=== PATIENT | female | born 1960 | race Caucasian/White ===

== ENCOUNTER 2016-05-19 12:00 | Inpatient (IN) | payer MEDICARE ==
[2016-06-16] MEDS ORDERED: LORazepam INJ* 2 MG/ML 1 ML VIAL IV PRN (17:46)
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
[2016-06-16] MEDS ORDERED: Ibuprofen TAB* 600 MG ONE (18:41)
[2016-06-16] MEDS ORDERED: Topiramate TAB(*) 100 MG PO SCH (21:00)
[2016-06-17] MEDS: Ibuprofen TAB* 600 MG PO PRN (04:21)
[2016-06-17] MEDS ORDERED: Topiramate TAB(*) 100 MG PO SCH (09:00)
[2016-06-17] MEDS ORDERED: Sertraline* 100 MG TAB PO SCH (09:00)
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
--- NOTE | 2016-06-17 10:50 | PN ---
Epilepsy Service Progress Note - Subjective Patient slept ok overnight. No episodes of losing time or foul odors. No specific questions or complaints today. She notes that in the past, she's had seizures when ill with the flu or a UTI, and sometimes when she gets overheated exercising. - Medications Active Medications: Diphenhydramine HCl (Benadryl Po*) 25 mg PO Q6H PRN PRN Reason: ITCHING Ibuprofen (Motrin Tab*) 600 mg PO Q8H PRN PRN Reason: PAIN Last Admin: 06/17/16 04:21 Dose: 600 mg Lorazepam (Ativan Inj*) 1 mg IV Q8H PRN PRN Reason: Generalized Tonic Clonic Seizu Sertraline HCl (Zoloft*) 100 mg PO DAILY [facility] Last Admin: 06/17/16 09:16 Dose: Not Given Topiramate (Topamax(*)) 75 mg PO BEDTIME [facility] Topiramate (Topamax(*)) 50 mg PO QAM [facility] EMU Diagnostics - Diagnostic Most Recent Vital Signs: Vital Signs: Temp Pulse Resp BP Pulse Ox 99 F 63 16 136/81 100 06/17/16 08:00 06/17/16 07:53 06/17/16 09:19 06/17/16 07:53 06/17/16 07:53 Interim video-EEG long-term monitoring report: #01 06/16: Normal waking background PDR 9. No epileptiform discharges. During sleep, there is subtle loss of faster frequency activity and lower amplitudes over the right hemisphere, in particular the right temporal region. No seizures. An event at 1452 of feeling weird was not associated with any change in the EEG. EMU Exam - Exam Physical/Neurological Exam: Physical Exam: General: Well appearing in no acute distress. 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 Oriented to person, place, and time. Fluent. Comprehension intact. Affect appropriate. Cranial Nerves: Visual dalton full to confrontation. Versions were full and without nystagmus. Facial musculature and sensation were symmetric. Hearing grossly intact to finger rub. Palate was upgoing bilaterally. Tongue was midline. Shoulder shrug was symmetric. Motor: Moves all extremities grossly equally. No adventitious movements. Sensory: Sensation to light touch intact. Romberg was deferred. Coordination: Finger to nose intact. Gait: Not observed. 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 The primary event for characterization involves waking up from sleep to a very foul odor. However, she also has episodes of staring/loss of time and she is unsure if these are seizures or not. No typical events recorded yet. Plan: * Continue prison video EEG monitoring to capture typical episodes * Seizure precautions * Lorazepam 1mg IV for GTC * reduce Topamax from home dose of 100mg QAM and 150mg QPM to 50mg QAM and 75mg QPM * continue other home meds * will consider increasing temperature in room if no events once patient is off Topamax
[2016-06-17] MEDS ORDERED: Topiramate TAB(*) 25 MG PO SCH (21:00)
[2016-06-17] MEDS: Sertraline* 100 MG TAB PO SCH (21:13)
[2016-06-18] MEDS: Ibuprofen TAB* 600 MG PO PRN ×2 (01:14→14:33)
[2016-06-18] MEDS ORDERED: Topiramate TAB(*) 25 MG PO SCH ×2 (09:00→21:00)
--- NOTE | 2016-06-18 11:31 | PN ---
Epilepsy Service Progress Note - Subjective Pt was visited by her sister yesterday. Received griffin for Ofelia from daughter and sister. No typical events. Generally in good spirits. - Medications Active Medications: Diphenhydramine HCl (Benadryl Po*) 25 mg PO Q6H PRN PRN Reason: ITCHING Ibuprofen (Motrin Tab*) 600 mg PO Q8H PRN PRN Reason: PAIN Last Admin: 06/18/16 01:14 Dose: 600 mg Lorazepam (Ativan Inj*) 1 mg IV Q8H PRN PRN Reason: Generalized Tonic Clonic Seizu Sertraline HCl (Zoloft*) 100 mg PO DAILY@2100 [facility] Last Admin: 06/17/16 21:13 Dose: 100 mg Topiramate (Topamax(*)) 75 mg PO BEDTIME [facility] Last Admin: 06/17/16 21:14 Dose: 75 mg Topiramate (Topamax(*)) 50 mg PO QAM [facility] Last Admin: 06/18/16 08:46 Dose: 50 mg EMU Diagnostics - Diagnostic Most Recent Vital Signs: Vital Signs: Temp Pulse Resp BP Pulse Ox 99.0 F 74 16 136/78 99 06/18/16 08:00 06/18/16 08:00 06/18/16 09:45 06/18/16 08:00 06/18/16 08:00 Interim video-EEG long-term monitoring report: #01 06/16: Normal waking background PDR 9. No epileptiform discharges. During sleep, there is subtle loss of faster frequency activity and lower amplitudes over the right hemisphere, in particular the right temporal region. No seizures. An event at 1452 of feeling weird was not associated with any change in the EEG. #02 06/17: Background similar as previous except no evident asymmetry during sleep. No discharges. No events. EMU Exam - Exam Physical/Neurological Exam: Physical Exam: General: Well appearing in no acute distress. 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 Oriented to person, place, and time. Fluent. Comprehension intact. Affect appropriate. Cranial Nerves: Visual dalton full to confrontation. Versions were full and without nystagmus. Facial musculature and sensation were symmetric. Hearing grossly intact to finger rub. Palate was upgoing bilaterally. Tongue was midline. Shoulder shrug was symmetric. Motor: Moves all extremities grossly equally. No adventitious movements. Sensory: Sensation to light touch intact. Romberg was deferred. Coordination: Finger to nose intact. Gait: Not observed. 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 The primary event for characterization involves waking up from sleep to a very foul odor. However, she also has episodes of staring/loss of time and she is unsure if these are seizures or not. No typical events recorded yet. Plan: * Continue intermodal dispatcher video EEG monitoring to capture typical episodes * Seizure precautions * Lorazepam 1mg IV for GTC * reduce Topamax further to 50mg tonight, then 25mg tomorrow morning, then stop * continue other home meds * will consider increasing temperature in room if no events once patient is off Topamax
[2016-06-18] MEDS: Sertraline* 100 MG TAB PO SCH (21:25)
[2016-06-19] MEDS ORDERED: Topiramate TAB(*) 25 MG PO SCH (09:00)
--- NOTE | 2016-06-19 11:00 | PN ---
Epilepsy Service Progress Note - Subjective No typical events yet. Pt reports she is feeling a little dizzy at times. Not brought on by position changes. Today notes that sometimes lights will bring on a staring-like episode, such as the sun shining through the trees when she's in the car. Last dose of Topamax received this morning. - Medications Active Medications: Diphenhydramine HCl (Benadryl Po*) 25 mg PO Q6H PRN PRN Reason: ITCHING Ibuprofen (Motrin Tab*) 600 mg PO Q8H PRN PRN Reason: PAIN Last Admin: 06/18/16 14:33 Dose: 600 mg Lorazepam (Ativan Inj*) 1 mg IV Q8H PRN PRN Reason: Generalized Tonic Clonic Seizu Sertraline HCl (Zoloft*) 100 mg PO DAILY@2100 [facility] Last Admin: 06/18/16 21:25 Dose: 100 mg EMU Diagnostics - Diagnostic Most Recent Vital Signs: Vital Signs: Temp Pulse Resp BP Pulse Ox 98.5 F 68 16 120/64 100 06/19/16 08:00 06/19/16 08:00 06/19/16 08:12 06/19/16 08:00 06/19/16 08:00 Interim video-EEG long-term monitoring report: #01 06/16: Normal waking background PDR 9. No epileptiform discharges. During sleep, there is subtle loss of faster frequency activity and lower amplitudes over the right hemisphere, in particular the right temporal region. No seizures. An event at 1452 of feeling weird was not associated with any change in the EEG. #02 /: Background similar as previous except no evident asymmetry during sleep. No discharges. No events. #03 /: Background similar to previous day. No discharges. No events. EMU Exam - Exam Physical/Neurological Exam: Physical Exam: General: Well appearing in no acute distress. 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 Oriented to person, place, and time. Fluent. Comprehension intact. Affect appropriate. Cranial Nerves: Visual dalton full to confrontation. Versions were full and without nystagmus. Facial musculature and sensation were symmetric. Hearing grossly intact to finger rub. Palate was upgoing bilaterally. Tongue was midline. Shoulder shrug was symmetric. Motor: Moves all extremities grossly equally. No adventitious movements. Sensory: Sensation to light touch intact. Romberg was deferred. Coordination: Finger to nose intact. Gait: Not observed. 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 The primary event for characterization involves waking up from sleep to a very foul odor. However, she also has episodes of staring/loss of time and she is unsure if these are seizures or not. No typical events recorded yet. Plan: * Continue snf video EEG monitoring to capture typical episodes * Seizure precautions * Lorazepam 1mg IV for GTC * Topamax discontinued after AM dose on 06/19 * continue other home meds * will increase temperature in room to about 85 degrees after lunch * if no events overnight, will consider photic simulation tomorrow
[2016-06-19] MEDS: Ibuprofen TAB* 600 MG PO PRN (12:46)
[2016-06-19] MEDS: Sertraline* 100 MG TAB PO SCH (21:52)
--- NOTE | 2016-06-20 11:32 | PN ---
Epilepsy Service Progress Note - Subjective Jane Olguin does not really remember her episode last evening around 7:45pm of smelling burning toast. She is not sure how long before the button pressed she experienced this. She thinks it was not entirely typical since it occurred while she was awake and was the smell of burnt food, rather than an electrical smell. Her room has been hot since yesterday afternoon. She's having a hard time staying awake. She wondered why Dr. Rojas had previously seen abnormalities on her EEG if I am not seeing anything here. This was a sleep deprived EEG. - Medications Active Medications: Diphenhydramine HCl (Benadryl Po*) 25 mg PO Q6H PRN PRN Reason: ITCHING Ibuprofen (Motrin Tab*) 600 mg PO Q8H PRN PRN Reason: PAIN Last Admin: 06/19/16 12:46 Dose: 600 mg Lorazepam (Ativan Inj*) 1 mg IV Q8H PRN PRN Reason: Generalized Tonic Clonic Seizu Sertraline HCl (Zoloft*) 100 mg PO DAILY@2100 [facility] Last Admin: 06/19/16 21:52 Dose: 100 mg EMU Diagnostics - Diagnostic Most Recent Vital Signs: Vital Signs: Temp Pulse Resp BP Pulse Ox 99.1 F 78 16 120/84 99 06/20/16 08:00 06/20/16 08:00 06/20/16 08:15 06/20/16 08:00 06/20/16 08:00 Interim video-EEG long-term monitoring report: #01 06/16: Normal waking background PDR 9. No epileptiform discharges. During sleep, there is subtle loss of faster frequency activity and lower amplitudes over the right hemisphere, in particular the right temporal region. No seizures. An event at 1452 of feeling weird was not associated with any change in the EEG. #02 06/17: Background similar as previous except no evident asymmetry during sleep. No discharges. No events. #03 06/18: Background similar to previous day. No discharges. No events. #04 06/19: Background similar to previous day. No discharges, focal slowing. She experienced an event of smelling burning toast around 1944. There was no EEG correlate to this. EMU Exam - Exam Physical/Neurological Exam: Physical Exam: General: Well appearing in no acute distress. 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 Oriented to person, place, and time. Fluent. Comprehension intact. Affect appropriate. Cranial Nerves: Visual dalton full to confrontation. Versions were full and without nystagmus. Facial musculature and sensation were symmetric. Hearing grossly intact to finger rub. Palate was upgoing bilaterally. Tongue was midline. Shoulder shrug was symmetric. Motor: Moves all extremities grossly equally. No adventitious movements. Sensory: Sensation to light touch intact. Romberg was deferred. Coordination: Finger to nose intact. Gait: Not observed. 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 The primary event for characterization involves waking up from sleep to a very foul odor. However, she also has episodes of staring/loss of time and she is unsure if these are seizures or not. No typical events recorded yet. She had one event of smelling burning toast which is atypical for her in that it occurred while she was awake, rather than out of sleep, and it was a smell of burning food rather than an electrical smell. Will continue to try and capture more typical events. 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 Will round on pt this afternoon.
[2016-06-20] MEDS: Sertraline* 100 MG TAB PO SCH (21:37)
--- NOTE | 2016-06-21 10:21 | PN ---
Epilepsy Service Progress Note - Subjective No overnight events. Pt was sleep deprived last night. States she feels ok but also feels ready to go home. Willing to keep going, however. Underwent photic this morning. - Medications Active Medications: Diphenhydramine HCl (Benadryl Po*) 25 mg PO Q6H PRN PRN Reason: ITCHING Ibuprofen (Motrin Tab*) 600 mg PO Q8H PRN PRN Reason: PAIN Last Admin: 06/19/16 12:46 Dose: 600 mg Lorazepam (Ativan Inj*) 1 mg IV Q8H PRN PRN Reason: Generalized Tonic Clonic Seizu Sertraline HCl (Zoloft*) 100 mg PO DAILY@2100 [place] Last Admin: 06/20/16 21:37 Dose: 100 mg EMU Diagnostics - Diagnostic Most Recent Vital Signs: Vital Signs: Temp Pulse Resp BP Pulse Ox 97.8 F 76 16 147/84 98 06/21/16 07:41 06/21/16 07:41 06/21/16 07:49 06/21/16 07:41 06/21/16 07:41 Interim video-EEG long-term monitoring report: #01 06/16: Normal waking background PDR 9. No epileptiform discharges. During sleep, there is subtle loss of faster frequency activity and lower amplitudes over the right hemisphere, in particular the right temporal region. No seizures. An event at 1452 of feeling weird was not associated with any change in the EEG. #02 06/17: Background similar as previous except no evident asymmetry during sleep. No discharges. No events. #03 06/18: Background similar to previous day. No discharges. No events. #04 06/19: Background similar to previous day. No discharges, focal slowing. She experienced an event of smelling burning toast around 194. There was no EEG correlate to this. #05 06/20: Background similar to previous day. No discharges, focal slowing. #06: 06/21: Photic induction negative. EMU Exam - Exam Physical/Neurological Exam: Physical Exam: General: Well appearing in no acute distress. 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 Oriented to person, place, and time. Fluent. Comprehension intact. Affect appropriate. Cranial Nerves: Visual dalton full to confrontation. Versions were full and without nystagmus. Facial musculature and sensation were symmetric. Hearing grossly intact to finger rub. Palate was upgoing bilaterally. Tongue was midline. Shoulder shrug was symmetric. Motor: Moves all extremities grossly equally. She had mild tremor and irregular twitching of the left upper extremity, long-standing per pt. This was seen on as well and not documented in error. Sensory: Sensation to light touch intact. Romberg was deferred. Coordination: Finger to nose intact. Gait: Not observed. 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 The primary event for characterization involves waking up from sleep to a very foul odor. However, she also has episodes of staring/loss of time and she is unsure if these are seizures or not. No typical events recorded yet. She had one event of smelling burning toast which is atypical for her in that it occurred while she was awake, rather than out of sleep, and it was a smell of burning food rather than an electrical smell. Will continue to try and capture more typical events. Photic induction on 06/21 negative. Plan: * Continue alf video EEG monitoring to capture typical episodes * Seizure precautions * Lorazepam 1mg IV for GTC * Topamax discontinued after AM dose on 06/19 * continue other home meds * room temperature turned down to normal * no naps today, can get normal sleep tonight.
[2016-06-21] MEDS: Sertraline* 100 MG TAB PO SCH (21:12)
[2016-06-21] MEDS: diPHENhydraMINE PO* 25 MG PO PRN (22:13)
--- NOTE | 2016-06-22 17:22 | PN ---
Epilepsy Service Progress Note - Subjective No overnight events. Pt disappointed that typical spells have not occurred. - Medications Active Medications: Diphenhydramine HCl (Benadryl Po*) 25 mg PO Q6H PRN PRN Reason: ITCHING Last Admin: 06/21/16 22:13 Dose: 25 mg Ibuprofen (Motrin Tab*) 600 mg PO Q8H PRN PRN Reason: PAIN Last Admin: 06/19/16 12:46 Dose: 600 mg Lorazepam (Ativan Inj*) 1 mg IV Q8H PRN PRN Reason: Generalized Tonic Clonic Seizu Sertraline HCl (Zoloft*) 100 mg PO DAILY@2100 [place] Last Admin: 06/21/16 21:12 Dose: 100 mg Topiramate (Topamax(*)) 150 mg PO BEDTIME [facility] Topiramate (Topamax(*)) 100 mg PO DAILY [facility] EMU Diagnostics - Diagnostic Most Recent Vital Signs: Vital Signs: Temp Pulse Resp BP Pulse Ox 98.2 F 76 16 116/83 98 06/22/16 10:19 06/22/16 10:19 06/22/16 10:49 06/22/16 10:19 06/22/16 10:19 Interim video-EEG long-term monitoring report: #01 06/16: Normal waking background PDR 9. No epileptiform discharges. During sleep, there is subtle loss of faster frequency activity and lower amplitudes over the right hemisphere, in particular the right temporal region. No seizures. An event at 1452 of feeling weird was not associated with any change in the EEG. #02 06/17: Background similar as previous except no evident asymmetry during sleep. No discharges. No events. #03 06/18: Background similar to previous day. No discharges. No events. #04 06/19: Background similar to previous day. No discharges, focal slowing. She experienced an event of smelling burning toast around 194. There was no EEG correlate to this. #05 06/20: Background similar to previous day. No discharges, focal slowing. #06: 06/21: Photic induction negative. Background similar to previous days EMU Exam - Exam Physical/Neurological Exam: Physical Exam: General: Well appearing in no acute distress. 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 Oriented to person, place, and time. Fluent. Comprehension intact. Affect appropriate. Cranial Nerves: Visual dalton full to confrontation. Versions were full and without nystagmus. Facial musculature and sensation were symmetric. Hearing grossly intact to finger rub. Palate was upgoing bilaterally. Tongue was midline. Shoulder shrug was symmetric. Motor: Moves all extremities grossly equally. She had mild tremor and irregular twitching of the left upper extremity, long-standing per pt. This was seen on as well and not documented in error. Sensory: Sensation to light touch intact. Romberg was deferred. Coordination: Finger to nose intact. Gait: Not observed. 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 The primary event for characterization involves waking up from sleep to a very foul odor. However, she also has episodes of staring/loss of time and she is unsure if these are seizures or not. No typical events recorded yet. She had one event of smelling burning toast which is atypical for her in that it occurred while she was awake, rather than out of sleep, and it was a smell of burning food rather than an electrical smell. Will continue to try and capture more typical events. Photic induction on 06/21 negative. Patient has had abnormal EEGs documented in the past, and gives a good history of convulsive events as recently as August 2015. Therefore, I feel it is best to put her back on her Topamax since none of her typical events were captured, despite the fact that her EEG has been essentially normal. Plan: * Continue fci video EEG monitoring to capture typical episodes * Seizure precautions * Lorazepam 1mg IV for GTC * Topamax discontinued after AM dose on 06/19. Will restart tonight in anticipation of discharge * continue other home meds * anticipate discharge in AM
[2016-06-22] MEDS ORDERED: Topiramate TAB(*) 25 MG PO SCH (21:00)
[2016-06-22] MEDS: Sertraline* 100 MG TAB PO SCH (21:12)
[2016-06-22] MEDS: diPHENhydraMINE PO* 25 MG PO PRN (23:12)
[2016-06-23] MEDS ORDERED: Topiramate TAB(*) 100 MG PO SCH (09:00)
[2016-06-23 09:03] VITALS: BP 101/74
--- NOTE | 2016-06-23 10:11 | DS ---
EMU Discharge - Discharge Summary Discharge Summary: Admitted: 06/16/16 Attending: Mary Chang Admitting Diagnosis: localization-related epilepsy, probable Discharge Diagnosis: same Admission History (From Admission H&P): see H&P Admission Examination: see H&P Admission AED Medications: Topamax 100mg QAM and 150mg QPM Hospital Course: The patient was admitted to the epilepsy service for long-term video EEG monitoring. The patient had 0 typical events. Therefore, the nature of her spells of smelling burning electrical wires or burning flesh, as well as episodes of staring, remains uncertain. Given the past history of convulsive activity preceded by a stereotyped odor, as described above, with convulsions resulting in injuries, as well as the history of previous abnormal EEGs, it was recommended that the patient remain on her previous dose of Topamax. The following medication medication changes were made during the testing: none Discharge Examination: same as admission Destination: Home. Diet: Regular. Follow-up: with Dr. Mckeon, to be scheduled. Home Medications Medication Instructions Recorded Confirmed Type Ibuprofen TAB* [Motrin TAB* 600 MG] 600 mg PO Q8H PRN 10/22/14 06/16/16 History Sertraline* [Zoloft*] 100 mg PO DAILY 10/22/14 06/16/16 History Topiramate TAB(*) [Topamax 100 mg 100 mg PO QAM 10/22/14 06/16/16 History tab] Topiramate TAB(*) [Topamax 100 mg 150 mg PO BEDTIME 12/14/15 06/16/16 History tab]
== END 2016-06-23 11:15 | disposition home or self-care (01) | DRG 101 ==
LOC: EEVIPCON 06-16 13:35 → MCHPEDS 06-16 13:35 → EMU 06-16 14:38
PROVIDERS: ADMIT Psychiatry & Neurology Neurology; ATTEND Psychiatry & Neurology Neurology
PROC: 4A10X4Z Monitoring of Central Nervous Electrical Activity, External Approach (ICD-10-PCS; principal; 2016-06-16)
DX: G40.109 Localization-related (focal) (partial) symptomatic epilepsy and epileptic syndromes with simple partial seizures, not intractable, without status epilepticus (principal); F32.9 Major depressive disorder, single episode, unspecified; F43.10 Post-traumatic stress disorder, unspecified; F41.9 Anxiety disorder, unspecified; G51.8 Other disorders of facial nerve; Z98.51 Tubal ligation status; Z87.891 Personal history of nicotine dependence; Z85.41 Personal history of malignant neoplasm of cervix uteri
CPT/HCPCS: 87624; 88175; 88305; 95951; A9270-GY; G0145

== ENCOUNTER 2017-06-24 02:46 | Emergency (ER) | payer MEDICARE ==
[2017-06-24] MEDS ORDERED: NS 0.9% 1000 ML* 1,000 ML IV ONE (03:04)
[2017-06-24] MEDS ORDERED: Ondansetron INJ* 2 MG/ML VIAL IV ONE (03:05)
[2017-06-24 03:41] LABS: ABS Basophils 0.2 10^3/ul (0-0.2); ABS Eosinophils 0.5 10^3/ul (0-0.6); ABS Lymphocytes 1.8 10^3/ul (1.0-4.8); ABS Monocytes 0.5 10^3/ul (0-0.8); ABS Neutrophils 3.7 10^3/ul (1.5-7.7); ABS Nucleated RBC 0 10^3/ul; Eosinophil % 7.8 % (0-6); Hematocrit 43 % (35-47); Hemoglobin 14.6 g/dl (12.0-16.0); Lymphocyte % 26.4 % (25-47); Mean Corpuscular HGB Conc 34 g/dl (31-36); Mean Corpuscular Hemoglobin 31 pg (27-31); Mean Corpuscular Volume 92 fL (80-97); Mean Platelet Volume 7.8 um3 (7.4-10.4); Nucleated Red Blood Cells % 0.1; Platelet Count 313 10^3/ul (150-450); Red Blood Count 4.64 10^6/ul (4.0-5.4); Red Cell Distribution Width 13 % (10.5-15); White Blood Count 6.7 10^3/ul (3.5-10.8)
[2017-06-24 03:49] LABS: INR 0.86 (0.77-1.02)
[2017-06-24] MEDS ORDERED: diPHENhydraMINE IV* 50 MG/ML 1 ml VIAL (BENADRYL) ONE (05:22)
[2017-06-24] MEDS ORDERED: diPHENhydraMINE IV* 50 MG/ML 1 ml VIAL (BENADRYL) IV ONE (05:26)
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
--- NOTE | 2017-06-24 10:05 | ED ---
Karen Plaza Thomas, scribed for Quang Branham MD on 06/24/17 at 0744 . Progress - Progress Note Progress Note: The patient is a sign out from Dr. Bolden at shift change, pending disposition. Course/Dx - Course Course Of Treatment: WITH THE PATIENT LEGALLY SOBER, SHE DENIED SI/HI, DENIES DEPRESSION/ANXIETY REQUIRING A MHE. DECLINES MHE. LUNGS CTA ON EXAM. NO NEUROLOGIC DEFICIT. PATIENT DECLINES CHEST/RIB X-RAYS. F/U PMD; RETURN IF WORSE. CRITICAL CARE TIME LESS THAN 30 MINUTES. - Diagnoses Provider Diagnoses: Alcohol intoxication Discharge - Sign-Out/Discharge Documenting (check all that apply): Discharge - Discharge Plan Condition: Stable Disposition: HOME Patient Education Materials: Alcohol Intoxication (ED) Referrals: Vanessa Berumen MD [Primary Care Provider] - Additional Instructions: FOLLOW UP WITH YOUR DOCTOR. RETURN TO THE EMERGENCY DEPARTMENT FOR ANY WORSENING OF YOUR CONDITION OR QUESTIONS OR CONCERNS. - Billing Disposition and Condition Condition: STABLE Disposition: HOME The documentation as recorded by the Karen lutz Thomas accurately reflects the service I personally performed and the decisions made by , Quang Branham MD.
--- NOTE | 2017-06-24 11:41 | RAD ---
Indication: Fall, head injury. CT of the brain was performed without IV contrast. Comparison is made with previous exam dated January 15, 2011. Motion artifact degrades the images. Ventricular structures are midline. No midline shift is noted. The extra-axial spaces are unremarkable. There is no evidence of intracranial mass or hemorrhage. No other high or low density lesions are identified. Mastoid air cells and paranasal sinuses are otherwise unremarkable. IMPRESSION: No intracranial mass or hemorrhage is noted.
--- NOTE | 2017-06-24 11:46 | RAD ---
Indication: Neck injury. CT of the cervical spine was obtained in the axial plane. Sagittal and coronal reconstructed images were obtained. The skull base demonstrates no fracture. Mastoid air cells are well aerated. The C1 ring is intact. The C2 vertebra is intact. There is grade 1 spondylolisthesis of C4 on 5. Degenerative disc disease at C5-C6 and C6-C7 is noted. Limited evaluation of C3-C7 is noted due to motion artifact. IMPRESSION: Grade 1 spinal listhesis of C4 on 5. Degenerative disc disease at C5-C6 and C6-C7. The study is limited in evaluation due to motion artifact from C3 through T1..
--- NOTE | 2017-06-24 11:47 | RAD ---
Indication: Facial injury. CT of the facial bones was performed in the axial plane. Sagittal and coronal reconstructed images were obtained. Mastoid air cells are well aerated. Skull base demonstrates no fracture. The orbits and zygomatic arch show no fracture. The maxillary sinuses demonstrates minimal mucosal thickening. Pterygoid plate and heart palate are unremarkable. The liver is limited in evaluation. The mandible demonstrates no fracture. Nasal arch cannot be fully evaluated due to motion artifact. IMPRESSION: No obvious fracture is noted although evaluation is severely limited due to motion artifact.
[2017-06-24 13:32] VITALS: BP 126/89
== END 2017-06-24 13:31 | disposition home or self-care (01) ==
LOC: ED 02:46
DX: F10.129 Alcohol abuse with intoxication, unspecified (principal); Z87.891 Personal history of nicotine dependence
CPT/HCPCS: 36415; 70450; 70486; 72125; 80053; 80320; 80329; 85025; 85610; 85730; 96374; 96375; 99285; G0480; J1200